=== PATIENT | female | born 1950 | race Caucasian/White ===

== ENCOUNTER 2025-05-11 12:11 | Outpatient (CLI) | payer MEDICARE, OTHER, SELFPAY ==
--- OUTSIDE RECORDS SUMMARY | 2025-05-11 13:26 | XMS_ITS | Clinical Summary ---
Author Organization [facility] Address [address] [place] [address] Care Team Providers Care College Professor Name Role Phone Unavailable Primary Care Provider Unavailabl e Source Comments Patient records contain information from all sites at [facility]. For routine questions regarding patient records, call [phone] during business hours, M-F 8:00 AM - 5:00 PM Central Time. Record requests for emergency care only can be directed to [phone] at any time.[facility] Allergies Active Allergy Reactions Criticality Noted Date Comments Penicillins Other (see comments) 09/02/2022 Yeast infection Medications amitriptyline (ElaviL) 50 mg tablet Take 50 mg by mouth 2 (two) times a day. Active cloNIDine (Catapres) 0.1 mg tablet Take 0.1 mg by mouth at bedtime. Active diclofenac sodium (Voltaren) 75 mg EC tablet Take 75 mg by mouth 2 (two) times a day with meals. Active diclofenac sodium (Voltaren) 1 % gel Apply 2 g topically 4 (four) times a day as needed. 4 Active famotidine (Pepcid) 20 mg tablet Take 20 mg by mouth at bedtime. Active levothyroxine 50 mcg tablet Take 50 mcg by mouth. 4 Active lidocaine (Lidoderm) 5 % adhesive patch,medicated Apply on dry, clean, hairless skin. Apply 1 patch to painful area of skin for up to to 12 hours within 24 hour period. 2 Active lisinopriL 40 mg tablet Take 40 mg by mouth daily. Active meclizine (Antivert) 25 mg tablet Take 25 mg by mouth 3 (three) times a day as needed. 4 Active metoprolol tartrate (Lopressor) 25 mg tablet Take 25 mg by mouth 2 (two) times a day. Active multivitamin tablet Take 1 tablet by mouth daily. 2 Active omeprazole (PriLOSEC) [address] capsule Take 40 mg by mouth 2 (two) times a day. Active rosuvastatin (Crestor) 10 mg tablet Take 10 mg by mouth at bedtime. Active melatonin 5 mg tablet Take 10 mg by mouth at bedtime as needed. Active trospium (Sanctura XR) 60 mg 24 hr capsule Take 1 capsule (60 mg total) by mouth daily before morning meal. 90 capsule 1 4 Active Active Problems Problem Noted Date Diagnosed Date Hypertension NOS 07/02/2022 Anxiety Generalized Disorder 07/02/2022 Fibromyalgia 07/02/2022 Gastroesophageal Reflux Disease NOS 07/02/2022 Hyperlipidemia 07/02/2022 Hypothyroidism 07/02/2022 Major Depressive Disorder Single Episode Unspeci fied 07/02/2022 Other Hereditary And Idiopathic Neuropathies 09/2022 Overactive Bladder 07/02/2022 Primary Generalized Osteoarthritis 07/02/2022 Immunizations Immunization Administration Dates Next Due Influenza high dose QV(65 years or older) (PF) 1 Influenza, Quadrivalent, Adjuvanted, Preservativ e Free 10/15/2023 Pneumococcal Conjugate(PCV), Unspecified 023 RZV (SHINGRIX) 05/11/2023 Social History Tobacco Use Types Packs/Day Years Used Date Smoking Tobacco: Never Passive Smoke Exposure: Past Smokeless Tobacco: Never Tobacco Cessation:Counseling Given: Not Answered Comments:Second hand smoke from Alcohol Use Standard Drinks/Week Comments Not Currently 0 (1 standard drink = 0.6 oz pur e alcohol) Dental Answer Date Recorded Dental: Regular Dentist Unknown 09/27/20 Comments Unknown Sex and Gender Information Value Date Recorded Sex Assigned at Not on file Legal Sex Female 8:18 AM [employer] Gender Identity Not on file Sexual Orientation Not on file Plan of Treatment Health Maintenance Due Date Last Done Comments CT Colonography 1952 Cologuard 1952 Colonoscopy 1952 Colorectal Cancer Screening 1952 Depression Monitoring (PHQ-9) 1952 FIT 1952 Hepatitis C Screening 1950 Office Visit for Blood Pressure Check / Re-check 1952 DTaP,Tdap,and Td Vaccines (1 - Tdap) 1971 Pneumococcal vaccine (50+ years) (1 of 1 - PCV) 2002 05/03/2023 Zoster Vaccines (2 of 2) 07/06/2023 05/11/2023 Mammogram 05/04/2024 05/04/2023, 05/04/2023 COVID-19 Vaccine (3 - 2023- season) 2024 10/15/2023, 05/03/2023 Influenza Vaccine (#1) 2024 , 08/24/2022 Depression Monitoring (PHQ-9 for quality tracking) 11/22/2024 Fall Risk Screen (Annual) 11/22/2024 Creatinine Level (Kidney Function Test) 07/26/2025 07/26/2024, 05/04/2023, 07/13/2022 Potassium Level 07/26/2025 07/26/2024, 05/04/2023, 07/13/2022 Sodium Level 07/26/2025 07/26/2024, 05/04/2023, 07/13/2022 Thyroid Stimulating Hormone (TSH) test for thyroid function 07/26/2025 07/26/2024, 05/04/2023, 07/13/2022 Fasting Glucose for Diabetes Screening 07/26/2027 07/26/2024, 05/04/2023, 07/13/2022 Lipid (Cholesterol) Screening 07/26/2029 07/26/2024, 05/04/2023, 07/13/2022 Bone Density Scan (Osteoporosis Screen) Discontinued 05/04/2023 IPV Vaccines Aged Out No longer eligi ble based on patient's age to complete this topic Insurance MEDICARE
--- OUTSIDE RECORDS SUMMARY | 2025-05-11 16:33 | XMS_ITS | Clinical Summary ---
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 0 2 Active amitriptyline (ELAVIL) 50 mg tabletIndications: LUPE (generalized anxiety disorder),Major depressive disorder, remission status unspecified, unspecified whether recurrent Take 1 Tablet (50 mg) by mouth two times daily. 200 Tablet 3 4 Active cloNIDine HCL (CATAPRES) 0.1 mg tabletIndications: Hypertension Take 1 Tablet (0.1 mg) by mouth at bedtime. 100 Tablet 3 4 Active diclofenac (VOLTAREN) 75 mg delayed-release tabletIndications: Primary osteoarthritis involving multiple joints Take 1 Tablet (75 mg) by mouth two times daily with meals. 200 Tablet 3 4 Active diclofenac topical (VOLTAREN) 1 % gelIndications:Alicia tomer osteoarthritis involving multiple joints Apply 2 g topically to affected area(s) 4 times daily if needed (pain). 450 g 3 4 Active famotidine (PEPCID) 20 mg tabletIndications: Chronic GERD Take 1 Tablet (20 mg) by mouth at bedtime. 100 Tablet 3 4 Active lisinopriL (PRINIVIL; ZESTRIL) 40 mg tabletIndications: Hypertension Take 1 Tablet (40 mg) by mouth once daily. 100 Tablet 3 4 Active metoprolol tartrate (LOPRESSOR) 25 mg tabletIndications: Hypertension Take 1 Tablet (25 mg) by mouth two times daily. 200 Tablet 3 4 Active omeprazole (PRILOSEC) 40 mg Delayed-Release capsuleIndications :Chronic GERD TAKE 1 CAPSULE TWICE DAILY 200 Capsule 3 4 Active rosuvastatin (CRESTOR) 10 mg tabletIndications: Hyperlipidemia, unspecified hyperlipidemia type Take 1 Tablet (10 mg) by mouth at bedtime. 100 Tablet 3 4 Active levothyroxine (Synthroid) 50 mcg tabletIndications: Hypothyroidism, unspecified type Take 1 Tablet (50 mcg) by mouth before breakfast. 100 Tablet 3 4 Active meclizine (ANTIVERT) 25 mg tabletIndications: Balance problem Take 1 Tablet (25 mg) by mouth 3 times daily if needed for Vertigo (Or Dizziness.). 30 Tablet 1 4 Active trospium 60 mg Extended-Release capsule Take 60 mg by mouth once daily before a meal. Active lidocaine 5 % topical patchIndications:C hronic pain of both shoulders,Fibromya lgia,Chronic midline low back pain without sciatica Apply on dry, clean, hairless skin. Apply 1 patch to painful area of skin for up to to 12 hours within 24 hour period. 30 Patch 11 5 Active Active Problems Problem Noted Date Diagnosed Date Fibromyalgia 07/02/2022 Hyperlipidemia 07/02/2022 LUPE (generalized anxiety disorder) 07/02/2022 Chronic GERD 07/02/2022 Hypertension 07/02/2022 Primary osteoarthritis involving multiple joints 07/02/2022 Overactive bladder 07/02/2022 Hypothyroidism 07/02/2022 Peripheral sensory neuropathy 07/02/2022 Major depressive disorder 07/02/2022 Encounters Date Type Department Care Team Description 05/11/2025 1:20 PM CDT Office Visit [facility] [address] [facility] [place] [address] Jimmie Hollis MD Procedure (L4-5 ILESI) 04/20/2025 11:00 AM CDT Ancillary Procedure [facility] [address] [facility] [place] [address] 04/20/2025 Travel 04/10/[address] [facility] [address] [place] [address] Esther Saha MD Prior Authorization (lidocaine 5 % topical patch DENIED) 04/05/2025 11:40 AM CDT Ancillary Procedure [address] [address] 04/05/2025 10:30 AM CDT Ancillary Procedure [address] [address] 04/05/2025 10:00 AM CDT Office Visit [address] [address] Esther Saha MD Back Pain (Lower back pain. No injury and does not radiate /Pain at worse /10) 04/05/2025 Travel 04/02/[address] [facility] [address] [place] [address] Sheila Henry DO Back Pain (epidural concerns ) 03/26/2025 3:25 PM CDT Office Visit [address] [address] Sheila Henry DO Injection (Medication) (Cortisone injection) 03/26/2025 Travel from Last 3 Months Immunizations Immunization Administration Dates Next Due COVID-19 VACCINE SPIKEVAX (M ODERNA 50MCG/0.5ML) 12YO+ PFS 10/15/2023 COVID-19 vaccine (Pocket Concierge-Bio NTech 30mcg/0.3mL) 12YO+ BIVALENT PF, MDV 05/03/2023 Influenza, CCIIV3 (Age >=6 MO) (Egg Free) 2023 Influenza, High-dose Quadrivalent Inactivated Influenza, Inactivated AIIV4 (Age 65+ Years) Preserv Free 10/15/2023 Pneumococcal Conj 20-valent (Prevnar 20) 023 Pneumococcal Conjugate, Unspecified Formulation 05/03/2023 Tdap 08/18/2024 Zoster (Shingrix-RZV, recombinant) 05/11/2023 Family History Medical History Relation Name Comments Cancer Brother Coronary artery disease Father Cancer-breast No Family History Cancer-ovarian No Family History Relation Name Status Comments Brother Father Social History Tobacco Use Types Packs/Day Years Used Date Smoking Tobacco: Never Smokeless Tobacco: Never Tobacco Cessation:Counseling Given: Yes Alcohol Use Standard Drinks/Week Comments Yes 0 (1 standard drink = 0.6 oz pur e alcohol) very occ PHQ-2 Answer Date Recorded PHQ-2 TOTAL SCORE 0 07/26/2024 Social Connections Answer Date Recorded Do you often feel lonely or isolated from those around you? 0 04/05/2025 Financial Resource Strain Answer Date R ecorded Difficulty of Paying Living Expenses 3 04/05/2025 Difficulty of Paying Living Expenses Not on file 04/05/2025 Food Insecurity Answer Date Recorded Do you worry your food will run out before you are able to buy more? 1 04/05/2025 Transportation Needs Answer Date Record ed Does lack of transportation keep you from medica l appointments? 1 04/05/2025 Does lack of transportation keep you from work, meetings or getting things that you need? 1 04/05/2025 Housing Stability Answer Date Recorded What is your housing situation today? 1 04/05/2025 Utilities Answer Date Recorded Do you have trouble paying f or utilities (for example, heat, electricity, water, phone)? 1 04/05/2025 Comments No Sex and Gender Information Value Date Recorded Sex Assigned at Not on file Legal Sex Female 1:56 PM CDT Gender Identity Not on file Sexual Orientation Not on file Obstetrics History Last Filed Vital Signs Vital Sign Reading Time Taken Comments Blood Pressure 121/81 04/05/2025 9:57 AM CDT Pulse 81 04/05/2025 9:57 AM CDT Temperature 37.2 C (98.9 F) 09/02/2022 10:13 AM CDT Respiratory Rate - - Oxygen Saturation 97% 04/05/2025 9:57 AM CDT Inhaled Oxygen Concentration - - Weight 81.6 kg (180 lb) 04/05/2025 9:57 AM CDT Height 161.5 cm (5' 3.58) 07/26/2024 1:40 PM CD T Body Mass Index 31.3 07/26/2024 1:40 PM CDT Plan of Treatment Health Maintenance Due Date Last Done Comments Hepatitis C screening for age 18-79 1970 RSV vaccine for adults or (1 - Risk 60-74 years 1-dose series) 2012 Zoster (shingles) series for age 50+ (2 of 2) 07/06/2023 05/11/2023 COVID-19 vaccine series ( season) 2025 08/18/2024, 10/15/2023, 05/03/2023, Additional history exists BMI (ht and wt on same day) for age 18+ 07/26/2025 07/26/2024, 05/03/2023, 09/02/2022, Additional history exists Medicare Wellness for age 65+ 07/27/2025 07/26/2024, 05/03/2023, 03/22/2022 (Completed outside of [facility]cierge) Depression screening for age 12+ 07/28/2025 07/28/2024, 07/26/2024, 05/07/2023, Additional history exists Colonoscopy through age 75 11/22/202611/22 (Completed outside of P[facility] Concierge) Mammogram for age 45-75 04/05/2027 04/05/20, 05/04/2023, 08/07/2019, Additional history exists Lipids for age 45-75 07/26/2029 07/26/2024, 05/04/2023, 07/13/2022 Tetanus booster 08/18/2034 08/18/2024 Pneumococcal series for age 50+ Completed 05/03/2023, 05/03/2023 DEXA/DXA scan for age 65+ Completed 05/04/2023 Influenza Vaccine Completed 08/18/2024, 10/15/2023 Tdap Completed 08/18/2024 Hepatitis B series for 19+ Aged Out N o longer eligible based on patient's age to complete this topic Procedures Procedure Name Priority Date/Time Associated Diagnosis Comments AMB EPIDURAL STEROID INJECTION Routine 05/11/2025 7:59 AM CDT Lumbar radiculopathy MR SPINE LUMBAR WO Routine 04/20/2025 11 :20 AM CDT Chronic midline low back pain without sciatica XR MAMMO THI BILAT SCREEN Routine 04/05/2025 11:40 AM CDT Screening mammogram for breast cancer CBC W PLT NO DIFF Routine 04/05/2025 10: 46 AM CDT Fibromyalgia Pain in other specified joint IRON PLUS IRON BINDING CAP Routine 04/05/2025 10:46 AM CDT Fibromyalgia Pain in other specified joint FERRITIN Routine 04/05/2025 10:46 AM CDT Fibromyalgia Pain in other specified joint XR SPINE LUMBAR 3 VIEWS Routine 04/05/2025 10:37 AM CDT Chronic bilateral low back pain with bilateral sciatica LIPID PANEL W REFLEX MEASURED LDL Routine 07/26/2024 2:39 PM CDT Hyperlipidemia, unspecified hyperlipidemia type XR DXA BONE DENSITY 2 SITES AXIAL Routine 05/04/2023 8:22 AM CDT Menopause from Last 3 Months or Most Recently Relevant to Health Maintenance Results * MR SPINE LUMBAR WO (04/20/2025 11:20 AM CDT) Anatomical Region Laterality Modality Spine, LUMBAR SPINE Magnetic Res onance 04/20/2025 2:55 PM CDT Narrative 04/20/2025 2:55 PM CDT For Patients: As a result of the Century Cures Act, medical imaging exams and procedure reports are released immediately into your electronic medical record. You may view this report before your referring provider. If you have questions, please contact your health care provider. Indication: Low back pain. Technique: Multiplanar, multisequence MRI of the lumbar spine was performed without intravenous contrast. Comparison: Lumbar spine radiographs 04/05/2025. Findings: There are 5 lumbar type vertebral segments identified. The vertebral body heights are maintained without evidence of fracture. There is no discrete T1 hypointense marrow infiltrating process. The conus medullaris terminates at L2, normal. Cauda equina appears unremarkable. T10-11: Only visualized on sagittal imaging disc bulge resulting in mild spinal canal narrowing. T11-12: No spinal canal or neural foraminal narrowing. T12-L1: No spinal canal or neural foraminal stenosis. L1-2: No spinal canal or neural foraminal stenosis. L2-3: No spinal canal or neural foraminal stenosis. L3-4: Disc degeneration. No spinal canal narrowing. Mild left neural foraminal narrowing. L4-5: Disc degeneration. Disc bulge with superimposed right subarticular disc protrusion. This compresses descending right L5 nerves. Mild neural foraminal narrowing. Moderate facet arthropathy. L5-S1: No spinal canal or neural foraminal stenosis. Moderate facet arthropathy. Mild sacroiliac joint osteoarthritis. Impression: 1. At L4-5, right subarticular disc protrusion compresses the descending right L5 nerves. 2. Moderate multilevel facet arthropathy. Dictated by Taiwo Biswas MD @ 04/20/2025 2:55:48 PM (Electronically Signed) Procedure Note Taiwo Biswas DO - 04/20/2025 For Patients: As a result of the Cures Act, medical imagingexams and procedure reports are released immediately into your electronicmedical record. You may view this report before your referring provider.If you have questions, please contact your health care provider. Indication: Low back pain. Technique: Multiplanar, multisequence MRI of the lumbar spine was performed withoutintravenous contrast. Comparison: Lumbar spine radiographs 04/05/2025. Findings: There are 5 lumbar type vertebral segments identified. The vertebral bodyheights are maintained without evidence of fracture. There is no discreteT1 hypointense marrow infiltrating process. The conus medullaris terminates at L2, normal. Cauda equina appearsunremarkable. T10-11: Only visualized on sagittal imaging disc bulge resulting in mildspinal canal narrowing. T11-12: No spinal canal or neural foraminal narrowing. T12-L1: No spinal canal or neural foraminal stenosis. L1-2: No spinal canal or neural foraminal stenosis. L2-3: No spinal canal or neural foraminal stenosis. L3-4: Disc degeneration. No spinal canal narrowing. Mild left neuralforaminal narrowing. L4-5: Disc degeneration. Disc bulge with superimposed right subarticulardisc protrusion. This compresses descending right L5 nerves. Mild neuralforaminal narrowing. Moderate facet arthropathy. L5-S1: No spinal canal or neural foraminal stenosis. Moderate facetarthropathy. Mild sacroiliac joint osteoarthritis. Impression: 1. At L4-5, right subarticular disc protrusion compresses the descendingright L5 nerves. 2. Moderate multilevel facet arthropathy. Dictated by Taiwo Biswas MD @ 04/20/2025 2:55:48 PM (Electronically Signed) Esther Saha MD MR Final Resul t * XR MAMMO THI BILAT SCREEN (04/05/2025 11:40 AM CDT) Anatomical Region Laterality Modality BREASTS, Breast Left, Breast Right Bilateral Mammography Impressions 04/05/2025 1:54 PM CDT There is no radiographic evidence for malignancy. Recommend annual mammograms. MAMMOGRAM ASSESSMENT: ACR 1 Negative PATIENTS: You will also receive a letter with your examination results in an easy to read format. If you have questions about your results, please contact your referring provider. Narrative 04/05/2025 1:54 PM CDT For Patients: As a result of the Century Cures Act, medical imaging exams and procedure reports are released immediately into your electronic medical record. You may view this report before your referring provider. If you have questions, please contact your health care provider. XR MAMMO THI BILAT SCREEN [[id number]] CLINICAL HISTORY: This is an asymptomatic 74 y.o. patient. INDICATION FOR EXAM: Mammogram Screening. TECHNIQUE: CC and MLO views were obtained. This study was evaluated with the assistance of Computer-Aided Detection. Breast Tomosynthesis was used in interpretation. COMPARISON FILM: Yes 05/04/23 [facility] FINDINGS: There are scattered areas of fibroglandular density. There are no dominant masses, suspicious micro calcifications or areas of architectural distortion. Esther Saha MD MAMMO Final Resul t * IRON PLUS IRON BINDING CAP (04/05/2025 10:46 AM CDT) IRON, TOTAL 99 45 - 160 mcg/dL [facility] IRON BINDING CAPACITY 304 250 - 450 mcg/dL (calc) [facility] % SATURATION 33 16 - 45 % (calc) [facility] Blood BLOOD SPECIMEN / Unknown 04/05/2025 10:46 AM CDT 04/05/2025 10:48 AM CDT us Esther Saha MD CHEMISTRY Final Resul t [facility] [facility] [address] [place] [address], [facility] [address] [place] [address] * CBC W PLT NO DIFF (04/05/2025 10:46 AM CDT) WHITE BLOOD CELL COUNT 7.3 3.8 - 10.8 Thousand/u L [facility] RED BLOOD CELL COUNT 4.62 3.80 - 5.10 Million/uL [facility] HEMOGLOBIN 13.1 11.7 - 15.5 g/dL [facility] HEMATOCRIT 40.4 35.0 - 45.0 % [facility] MCV 87.4 80.0 - 100.0 fL [facility] MCH 28.4 27.0 - 33.0 pg [facility] MCHC 32.4 32.0 - 36.0 g/dL [facility] Comment: For adults, a slight decrease in the calculated MCHC value (in the range of 30 to 32 g/dL) is most likely not clinically significant; however, it should be interpreted with caution in correlation with other red cell parameters and the patient's clinical condition. RDW 13.4 11.0 - 15.0 % [facility] PLATELET COUNT 391 140 - 400 Thousand/u L [facility] MPV 9.1 7.5 - 12.5 fL [facility] Blood BLOOD SPECIMEN / Unknown 04/05/2025 10:46 AM CDT 04/05/2025 10:48 AM CDT Esther Saha MD HEMATOLOGY Final Resul t [employer] [facility] [address] [place] [address], [place] [phone] [facility] [address] [place] [address] * FERRITIN (04/05/2025 10:46 AM CDT) FERRITIN 44 16 - 288 ng/mL [facility] Blood BLOOD SPECIMEN / Unknown 04/05/2025 10:46 AM CDT 04/05/2025 10:48 AM CDT Esther Saha MD CHEMISTRY Final Resul t Performing Organization Address City/[facility]/ZIP Co de Phone Number [facility] [facility] [address] [place] [address], [place] [phone] [facility] [address] [place] [address] * XR SPINE LUMBAR 3 VIEWS (04/05/2025 10:37 AM CDT) Anatomical Region Laterality Modality LUMBAR SPINE Computed Radiogr aphy 04/06/2025 3:01 PM CDT Impressions 04/06/2025 3:01 PM CDT Degenerative disc disease L4-5. Facet degeneration lower lumbar spine. Dictated by Fred Rader MD @ 04/06/2025 3:01:58 PM (Electronically Signed) Narrative 04/06/2025 3:01 PM CDT For Patients: As a result of the Century Cures Act, medical imaging exams and procedure reports are released immediately into your electronic medical record. You may view this report before your referring provider. If you have questions, please contact your health care provider. INDICATION: Chronic bilateral low back pain with bilateral sciatica TECHNIQUE: 3-view lumbar spine. COMPARISON: none FINDINGS: Disc space narrowing L4-5. Slight degenerative anterolisthesis L4 on L5. Facet degeneration L4-5 and L5-S1. No vertebral body compression fracture. Vascular calcifications. Procedure Note Fred Rader MD - 04/06/2025 For Patients: As a result of the Cures Act, medical imagingexams and procedure reports are released immediately into your electronicmedical record. You may view this report before your referring provider.If you have questions, please contact your health care provider. INDICATION: Chronic bilateral low back pain with bilateral sciatica TECHNIQUE: 3-view lumbar spine. COMPARISON: none FINDINGS: Disc space narrowing L4-5. Slight degenerative anterolisthesis L4 on L5.Facet degeneration L4-5 and L5-S1. No vertebral body compression fracture.Vascular calcifications. IMPRESSION: Degenerative disc disease L4-5. Facet degeneration lower lumbar spine. Dictated by Fred Rader MD @ 04/06/2025 3:01:58 PM (Electronically Signed) us Esther Saha MD GENERAL IMAGING Final Resul t * (ABNORMAL) LIPID PANEL W REFLEX MEASURED LDL (07/26/2024 2:39 PM CDT) CHOLESTEROL,TOTAL 153 100 - 199 mg/dL 07/27/2024 12:24 AM CDT [facility] Comment: Cholesterol, Total Reference Ranges Desirable <200 mg/dL Borderline 200-239 mg/dL High >=240 mg/dL TRIGLYCERIDES 218(H) <150 mg/dL 07/27/2024 12:24 AM CDT [facility] HDL CHOLESTEROL 50 >40 mg/dL 12:24 AM CDT [facility] NON-HDL CHOLESTEROL 103 <145 mg/dl 07/27/2024 12:24 AM CDT [facility] CHOL/HDL RATIO 3.06 <4.50 07/27/2024 12:24 AM CDT [facility] LDL CHOLESTEROL 59 <=130 mg/dL 07/27/2024 12:24 AM CDT [facility] VLDL CHOLESTEROL 44(H) <=30 mg/dL 07/27/2024 12:24 AM CDT [facility] PROVIDER ORDERED STATUS RANDOM 07/27/2024 12:24 AM CDT [facility] Blood BLOOD SPECIMEN / Unknown Venipuncture / Unknown 07/26/2024 2:39 PM CDT 07/26/2024 2:40 PM CDT Esther Saha MD CHEMISTRY Final Resul t [facility] [address] [place] [address], * XR DXA BONE DENSITY 2 SITES AXIAL (05/04/2023 8:22 AM CDT) Anatomical Region Laterality Modality Spine, HIPS, HIPL, HIPR Other Impressions 05/05/2023 4:20 PM CDT Normal bone density. RECOMMENDATIONS: The National Osteoporosis Foundation recommends pharmacologic treatment for patients with T-scores of -2.5 or less, patients with prior history of fragility fractures, or patients with 10-year probability of greater than 3% at hips or greater than 20% of suffering major osteoporotic fractures. Recommend continued optimization of calcium and vitamin D intake through dietary means and/or supplementation and regular exercise. Repeat scan recommended in 3-5 years. Becca Vivas PA-C [facility] 05/05/2023 Narrative 05/05/2023 4:20 PM CDT For Patients: Results are automatically released to your [facility] ([facility]) account once available, in compliance with federal regulations. This means that you may see your results before your provider has had a chance to review them. Please allow 2-3 business days for your provider to comment on the results. XR DXA Bone Mineral Density (BMD) EXAM LOCATION: [address] [address] PATIENT NAME: Anna Aleman DATE OF : 1950 EXAM DATE: 05/04/2023 REQUESTING PROVIDER: Esther Saha MD GENDER AT : female HEIGHT: 5' 2.99 (05/03/2023) WEIGHT: 176 lb 6.4 oz (05/03/2023) MENOPAUSAL STATUS: Postmenopausal RACE/ETHNICITY: White RISK FACTORS: Family History of Osteoporosis and White Race CURRENT MEDICATION FOR BONE LOSS: NONE INDICATION: Menopause COMPARISON DATE(S): None DXA scans are compared to prior studies for a patient only when the two (or more) studies were performed on the same scanner. It is not possible to compare data generated on one scanner to data from another because there are not standards in DXA equipment. This applies even if the two scanners are made by the same primary grade teacher. PROCEDURE: Dual-energy x-ray absorptiometry performed with routine technique. Reporting is completed in the form of a T-score. The T-score represents the standard deviation from peak bone mass based on young healthy adult. A Z-score is used for diagnosis in premenopausal women, and for men under the age of 50. FINDINGS: RESULT LUMBAR SPINE L1 - L4 BMD: 1.309 g/cm2 T-Score: + 0.9 Z-Score: + 2.1 Change from prior: None RESULTS FEMUR Left femoral neck BMD: 0.969 g/cm2 T-Score: - 0.5 Z-Score: + 0.9 Change from prior: None Right femoral neck BMD: 0.986 g/cm2 T-Score: - 0.4 Z-Score: + 1.0 Change from prior: None Left hip BMD: 1.074 g/cm2 T-Score: + 0.5 Z-Score: + 1.7 Change from prior: None Right hip BMD: 1.092 g/cm2 T-Score: + 0.7 Z-Score: + 1.8 Change from prior: None WHO criteria: Normal: T-score at or above -1 SD Osteopenia: T-score between -1.1 and -2.4 SD Osteoporosis: T-score at or below -2.5 SD Esther Saha MD DEXA Final Resul t from Last 3 Months or Most Recently Relevant to Health Maintenance Insurance MEDICARE PB ONLY MEDICARE PART B HB ONLY [employer] NAL Advance Directives Documents on File Type Date Recorded 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
--- OUTSIDE RECORDS SUMMARY | 2025-05-12 00:22 | XMS_ITS | Clinical Summary ---
Author Organization [facility] Address [address] [place] [address] Care Team Providers Care Digital Imaging Technician Name Role Phone Unavailable Primary Care Provider Unavailabl e Source Comments Patient records contain information from all sites at [facility]. For routine questions regarding patient records, call [phone] during business hours, M-F 8:00 AM - 5:00 PM Central Time. 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
--- OUTSIDE RECORDS SUMMARY | 2025-05-12 00:23 | XMS_ITS | Clinical Summary ---
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 Name Role Phone Esther Saha MD Primary [...] Description 05/11/2025 1:20 PM CDT Office Visit [facility] [address] [facility] [place] [address] Jimmie Hollis MD Procedure (L4-5 ILESI) 04/20/2025 11:00 AM CDT Ancillary Procedure [facility] [address] [facility] [place] [address] 04/20/2025 Travel 04/10/2025 Telephone [facility] [address] [place] [address] Esther Saha MD Prior Authorization (lidocaine 5 % topical patch DENIED) 04/05/2025 11:40 AM CDT Ancillary Procedure [address] [address] 04/05/2025 10:30 AM CDT Ancillary Procedure [address] [address] 04/05/2025 10:00 AM CDT Office Visit [address] [address] Esther Saha MD Back Pain (Lower back pain. No injury and does not radiate /Pain at worse /10) 04/05/2025 Travel 04/02/2025 Telephone [facility] [address] [place] [address] Sheila Henry DO Back Pain (epidural concerns ) 03/26/2025 3:25 PM CDT Office Visit [address] [address] Sheila Henry DO Injection (Medication) (Cortisone injection) 03/26/2025 Travel from Last 3 Months Immunizations Immunization Administration Dates Next Due COVID-19 VACCINE SPIKEVAX (M ODERNA 50MCG/0.5ML) 12YO+ PFS 10/15/2023 COVID-19 vaccine ([employer] NTech 30mcg/0.3mL) 12YO+ BIVALENT PF, MDV 05/03/2023 [...] 07/27/2025 07/26/2024, 05/03/2023, 03/22/2022 (Completed outside of [facility]) Depression screening for age 12+ 07/28/2025 07/28/2024, 07/26/2024, 05/07/2023, Additional history exists Colonoscopy through age 75 11/22/202611/22 (Completed outside of [facility]) Mammogram for age 45-75 04/05/2027 04/05/20, 05/04/2023, [...] care provider. XR MAMMO THI BILAT SCREEN [[id number]] CLINICAL HISTORY: This is an asymptomatic 74 [...] Esther Saha MD CHEMISTRY Final Resul t [facility] [address] [place] [address], [facility] [address] [place] [address] * CBC W PLT NO DIFF (04/05/2025 10:46 AM CDT) WHITE BLOOD CELL COUNT 7.3 3.8 - 10.8 Thousand/u L [facility] RED BLOOD CELL COUNT 4.62 [...] Esther Saha MD HEMATOLOGY Final Resul t [facility] [address] [place] [address], [place] [phone] [facility] [address] [place] [address] * FERRITIN (04/05/2025 10:46 AM CDT) FERRITIN 44 16 - 288 ng/mL [facility] Blood BLOOD SPECIMEN / Unknown 04/05/2025 10:46 AM CDT 04/05/2025 10:48 AM CDT Esther Saha MD CHEMISTRY Final Resul t Performing Organization Address City/[facility]/ZIP Co de Phone Number [facility] [address] [place] [address], [place] [phone] [facility] [address] [place] [address] * XR SPINE LUMBAR 3 VIEWS (04/05/2025 [...] - 199 mg/dL 07/27/2024 12:24 AM CDT [facility] Comment: Cholesterol, Total Reference Ranges Desirable <200 mg/dL Borderline 200-239 mg/dL High >=240 mg/dL TRIGLYCERIDES 218(H) <150 mg/dL 07/27/2024 12:24 AM CDT [facility] HDL CHOLESTEROL 50 >40 mg/dL 12:24 AM CDT [facility] NON-HDL CHOLESTEROL 103 <145 mg/dl 07/27/2024 12:24 AM CDT [facility] CHOL/HDL RATIO 3.06 <4.50 07/27/2024 12:24 AM CDT [facility] LDL CHOLESTEROL 59 <=130 mg/dL 07/27/2024 12:24 AM CDT [facility] VLDL CHOLESTEROL 44(H) <=30 mg/dL 07/27/2024 12:24 AM CDT [facility] PROVIDER ORDERED STATUS RANDOM 07/27/2024 12:24 AM CDT [facility] Blood BLOOD SPECIMEN / Unknown Venipuncture / Unknown 07/26/2024 2:39 PM CDT 07/26/2024 2:40 PM CDT Esther Saha MD CHEMISTRY Final Resul t [facility] [address] [place] [address], * XR DXA BONE DENSITY 2 SITES [...] recommended in 3-5 years. Becca Vivas PA-C [facility] 05/05/2023 Narrative 05/05/2023 4:20 PM CDT For Patients: Results are automatically released to your [facility] account once available, in compliance with federal regulations. This means that you may see your results before your provider has had a chance to review them. Please allow 2-3 business days for your provider to comment on the results. 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
== END 2025-05-11 12:12 | disposition home or self-care (01) ==
PROVIDERS: PCP Family Medicine; Visit Provider Family Medicine
DX: M54.16 Radiculopathy, lumbar region (principal); M51.369 Other intervertebral disc degeneration, lumbar region without mention of lumbar back pain or lower extremity pain
CPT/HCPCS: 62323; J0702; J2250; J3010; Q9966